=== PATIENT | female | born 1935 | race Caucasian/White ===

== ENCOUNTER 2019-07-23 11:12 | Inpatient (IN) | payer OTHER, MEDICAID ==
[~2019-07-23] VITALS: Ht 154.9 cm; Wt 47.2 kg
[2019-07-23 11:12] VITALS: BP_SYST 120
[2019-07-23] MEDS ORDERED: CALC-939 PO (11:26)
[2019-07-23] MEDS ORDERED: VITD400 PO (11:26)
[2019-07-23] MEDS ORDERED: ALEN10TA7 PO (11:26)
[2019-07-23] MEDS ORDERED: SENN-104 PO (11:26)
[2019-07-23] MEDS ORDERED: ASPI-1153 PO (11:26)
[2019-07-23] MEDS ORDERED: MULT-1200 PO (11:26)
[2019-07-23] MEDS ORDERED: NACL 0.9% 1,000 ML IV ONE (11:28)
[2019-07-23 11:54] LABS: BASOPHILS # (AUTO) 0.1 K/uL (0.0-0.2); BASOPHILS % (AUTO) 0.8 % (0.0-2.0); EOSINOPHILS # (AUTO) 0.2 K/uL (0.0-0.4); EOSINOPHILS % (AUTO) 2.1 % (0.0-4.0); HEMATOCRIT 39.1 % (36-48); HEMOGLOBIN 13.2 g/dL (12.0-16.0); LYMPHOCYTES # (AUTO) 2.5 K/uL (1.0-5.5); LYMPHOCYTES % (AUTO) 30.2 % (20.5-51.5); MEAN CORPUSCULAR HEMOGLOBIN 30 pg (27-31); MEAN CORPUSCULAR HGB CONC 34 % (32-36); MEAN CORPUSCULAR VOLUME 88 fL (79.0-98.0); MONOCYTES # (AUTO) 0.5 K/uL (0.0-1.0); MONOCYTES % (AUTO) 6.1 % (1.7-9.3); NEUTROPHILS % (AUTO) 60.8 % (40.0-70.0); PLATELET COUNT (AUTO) 286 K/uL (130-430); RED BLOOD CELL COUNT(AUTO) 4.45 MIL/uL (4.2-6.2); RED CELL DISTRIBUTION WIDTH 14.3 % (9.0-15.0); WHITE BLOOD COUNT (AUTO) 8.3 K/uL (4.8-10.8)
[2019-07-23 12:03] LABS: ANION GAP 3 (5-15); CALCIUM 9.8 mg/dL (8.4-11.0); CHLORIDE 101 mmol/L (98-107); CREATININE 0.76 mg/dL (0.55-1.30); GLUCOSE 92 mg/dL (70-99); POTASSIUM 4.8 mmol/L (3.5-5.1); SODIUM SERUM 132 mmol/L (136-145); UREA NITROGEN, BLOOD 11 mg/dL (8-21)
[2019-07-23 12:08] LABS: ALANINE AMINOTRANSFERASE 31 U/L (12-78); ALBUMIN 3.6 g/dL (3.4-4.8); ASPARTATE AMINOTRANSFERASE 28 U/L (10-37); LIPASE 86 U/L (73-393); TOTAL BILIRUBIN 0.4 mg/dL (0.0-1.0)
[2019-07-23] MEDS ORDERED: SODIUM PHOSPHATE,MONO-DIBASIC 133 ML ENEMA RC ONE (13:30)
[2019-07-23 13:41] LABS: BILIRUBIN,URINE NEGATIVE (NEGATIVE); CLARITY/URINE CLEAR (CLEAR); COLOR,URINE YELLOW (YELLOW); GLUCOSE,URINE NEGATIVE (NEGATIVE); KETONES,URINE NEGATIVE (NEGATIVE); LEUKOCYTE ESTERASE ,URINE NEGATIVE (NEGATIVE); NITRITE, URINE NEGATIVE (NEGATIVE); PROTEIN URINE NEGATIVE (NEGATIVE); UROBILINOGEN,URINE 0.2 (0.2-1.0)
[2019-07-23 13:52] LABS: BLOOD, URINE TRACE (NEGATIVE)
[2019-07-23 14:10] LABS: BACTERIA,URINE RARE /HPF (None Seen); MUCUS,URINE 1+ /LPF (None Seen); WBC,URINE 0-3 /HPF (0-3)
[2019-07-23 14:33] VITALS: BP_SYST 113
[2019-07-23] MEDS: D5/0.45 NS 1,000 ML IV SCH (15:31)
[2019-07-23] MEDS: MILK OF MAGNESIA 30 ML UDC PO SCH ×3 (15:31→22:17)
[2019-07-23 20:00] VITALS: BP_SYST 116
[2019-07-24 00:17] VITALS: BP_SYST 125
[2019-07-24] MEDS: MILK OF MAGNESIA 30 ML UDC PO SCH ×6 (03:07→22:01)
[2019-07-24] MEDS ORDERED: FLU VACC TS2019(65UP)/MF59C/PF 45 MCG/0.5 ML SYRINGE I.M. PRN (04:15)
[2019-07-24 06:38] LABS: BASOPHILS # (AUTO) 0.1 K/uL (0.0-0.2); BASOPHILS % (AUTO) 0.9 % (0.0-2.0); EOSINOPHILS # (AUTO) 0.2 K/uL (0.0-0.4); EOSINOPHILS % (AUTO) 2.7 % (0.0-4.0); HEMATOCRIT 36.1 % (36-48); HEMOGLOBIN 12.2 g/dL (12.0-16.0); LYMPHOCYTES # (AUTO) 1.9 K/uL (1.0-5.5); LYMPHOCYTES % (AUTO) 29.4 % (20.5-51.5); MEAN CORPUSCULAR HEMOGLOBIN 30 pg (27-31); MEAN CORPUSCULAR HGB CONC 34 % (32-36); MEAN CORPUSCULAR VOLUME 88 fL (79.0-98.0); MONOCYTES # (AUTO) 0.5 K/uL (0.0-1.0); MONOCYTES % (AUTO) 7.4 % (1.7-9.3); NEUTROPHILS # (AUTO) 3.9 K/uL (1.8-7.7); NEUTROPHILS % (AUTO) 59.6 % (40.0-70.0); PLATELET COUNT (AUTO) 247 K/uL (130-430); RED BLOOD CELL COUNT(AUTO) 4.11 MIL/uL (4.2-6.2); RED CELL DISTRIBUTION WIDTH 14.6 % (9.0-15.0); WHITE BLOOD COUNT (AUTO) 6.6 K/uL (4.8-10.8)
[2019-07-24 06:42] LABS: ANION GAP 4 (5-15); CALCIUM 8.6 mg/dL (8.4-11.0); CHLORIDE 105 mmol/L (98-107); GLUCOSE 94 mg/dL (70-99); POTASSIUM 3.8 mmol/L (3.5-5.1); SODIUM SERUM 136 mmol/L (136-145); UREA NITROGEN, BLOOD 8 mg/dL (8-21)
[2019-07-24 08:44] VITALS: BP_SYST 110
[2019-07-24] MEDS: POLYETHYLENE GLYCOL 3350, 17 GM/ POWD.PACK PO SCH (09:01)
[2019-07-24] MEDS: MINERAL OIL 30 ML UDC PO SCH (09:01)
[2019-07-24] MEDS: D5/0.45 NS 1,000 ML IV SCH (09:03)
[2019-07-24 12:26] VITALS: BP_SYST 90
[2019-07-24 17:19] VITALS: BP_SYST 120
[2019-07-24 20:24] VITALS: BP_SYST 132
[2019-07-25 00:32] VITALS: BP_SYST 109
[2019-07-25] MEDS: MILK OF MAGNESIA 30 ML UDC PO SCH ×6 (03:00→22:16)
[2019-07-25] MEDS: D5/0.45 NS 1,000 ML IV SCH ×2 (03:08→22:20)
[2019-07-25 08:27] VITALS: BP_SYST 109
[2019-07-25] MEDS: POLYETHYLENE GLYCOL 3350, 17 GM/ POWD.PACK PO SCH (08:51)
[2019-07-25] MEDS: MINERAL OIL 30 ML UDC PO SCH (08:51)
[2019-07-25 12:17] VITALS: BP_SYST 117
[2019-07-25 16:45] VITALS: BP_SYST 102
[2019-07-25 20:00] VITALS: BP_SYST 112
[2019-07-26] VITALS: BP_SYST 110
[2019-07-26] MEDS: MILK OF MAGNESIA 30 ML UDC PO SCH ×2 (02:51→07:00)
[2019-07-26 08:37] VITALS: BP_SYST 105
[2019-07-26] MEDS: MINERAL OIL 30 ML UDC PO SCH (08:58)
[2019-07-26] MEDS: POLYETHYLENE GLYCOL 3350, 17 GM/ POWD.PACK PO SCH (08:58)
[2019-07-26 18:28] VITALS: BP_SYST 105
== END 2019-07-26 19:02 | disposition home health service (06) | DRG 389 ==
LOC: SED 11:12 → SMU 13:38
PROVIDERS: ADMIT Internal Medicine; ATTEND Internal Medicine
DX: K56.41 Fecal impaction (principal); E87.1 Hypo-osmolality and hyponatremia; I10 Essential (primary) hypertension; F03.90 Unspecified dementia, unspecified severity, without behavioral disturbance, psychotic disturbance, mood disturbance, and anxiety; Z88.8 Allergy status to other drugs, medicaments and biological substances; Z79.899 Other long term (current) drug therapy; Z79.82 Long term (current) use of aspirin
CPT/HCPCS: 36415; 74018; 80048; 80053; 81000-TC; 83690-TC; 85025; 96360; 99285; J7030

== ENCOUNTER 2019-08-18 14:55 | Inpatient (IN) | payer OTHER, MEDICAID ==
[~2019-08-18] VITALS: Ht 154.9 cm; Wt 46.7 kg
[~2019-08-18 14:55] MED LIST: ALEN10TA7 PO; ASPI-1153 PO; CALC-939 PO; MULT-1200 PO; SENN-104 PO; VITD400 PO
[2019-08-18 15:40] VITALS: BP_SYST 116
[2019-08-18 16:01] LABS: BASOPHILS # (AUTO) 0.1 K/uL (0.0-0.2); BASOPHILS % (AUTO) 1.1 % (0.0-2.0); EOSINOPHILS # (AUTO) 0.1 K/uL (0.0-0.4); EOSINOPHILS % (AUTO) 1.3 % (0.0-4.0); HEMATOCRIT 38.3 % (36-48); HEMOGLOBIN 12.6 g/dL (12.0-16.0); LYMPHOCYTES # (AUTO) 1.5 K/uL (1.0-5.5); LYMPHOCYTES % (AUTO) 27.6 % (20.5-51.5); MEAN CORPUSCULAR HEMOGLOBIN 29 pg (27-31); MEAN CORPUSCULAR HGB CONC 33 % (32-36); MEAN CORPUSCULAR VOLUME 89 fL (79.0-98.0); MONOCYTES # (AUTO) 0.5 K/uL (0.0-1.0); MONOCYTES % (AUTO) 8.4 % (1.7-9.3); NEUTROPHILS # (AUTO) 3.4 K/uL (1.8-7.7); NEUTROPHILS % (AUTO) 61.6 % (40.0-70.0); PLATELET COUNT (AUTO) 304 K/uL (130-430); RED BLOOD CELL COUNT(AUTO) 4.32 MIL/uL (4.2-6.2); RED CELL DISTRIBUTION WIDTH 14.7 % (9.0-15.0); WHITE BLOOD COUNT (AUTO) 5.6 K/uL (4.8-10.8)
[2019-08-18 16:22] LABS: ANION GAP 5 (5-15); CALCIUM 9.2 mg/dL (8.4-11.0); CHLORIDE 102 mmol/L (98-107); CREATININE 0.44 mg/dL (0.55-1.30); GLUCOSE 100 mg/dL (70-99); POTASSIUM 4.5 mmol/L (3.5-5.1); SODIUM SERUM 135 mmol/L (136-145); UREA NITROGEN, BLOOD 7 mg/dL (8-21)
[2019-08-18 16:27] LABS: ALANINE AMINOTRANSFERASE 28 U/L (12-78); ALBUMIN 3.3 g/dL (3.4-4.8); ASPARTATE AMINOTRANSFERASE 24 U/L (10-37); TOTAL BILIRUBIN 0.2 mg/dL (0.0-1.0)
[2019-08-18 18:04] LABS: BILIRUBIN,URINE NEGATIVE (NEGATIVE); BLOOD, URINE NEGATIVE (NEGATIVE); CLARITY/URINE CLEAR (CLEAR); COLOR,URINE YELLOW (YELLOW); GLUCOSE,URINE NEGATIVE (NEGATIVE); KETONES,URINE NEGATIVE (NEGATIVE); LEUKOCYTE ESTERASE ,URINE NEGATIVE (NEGATIVE); NITRITE, URINE NEGATIVE (NEGATIVE); PH,URINE 6.5 (5.0-8.0); PROTEIN URINE NEGATIVE (NEGATIVE); UROBILINOGEN,URINE 0.2 (0.2-1.0)
[2019-08-18] MEDS ORDERED: SENN-104 PO (19:37)
[2019-08-18] MEDS ORDERED: CHOL100062 PO (19:37)
[2019-08-18] MEDS ORDERED: [UNRECOGNIZED DRUG - OTHER] PO (19:37)
[2019-08-18] MEDS ORDERED: LORA10TA7 PO (19:37)
[2019-08-18] MEDS ORDERED: CALC-939 PO (19:37)
[2019-08-18] MEDS ORDERED: NAPROXEN PO (19:37)
[2019-08-18] MEDS: D5/0.45 NS 1,000 ML IV SCH (19:58)
[2019-08-18 21:06] VITALS: BP_SYST 117
[2019-08-19 01:50] VITALS: BP_SYST 118
[2019-08-19 05:49] LABS: BASOPHILS % (AUTO) 0.8 % (0.0-2.0); EOSINOPHILS # (AUTO) 0.1 K/uL (0.0-0.4); EOSINOPHILS % (AUTO) 2.1 % (0.0-4.0); HEMATOCRIT 35.7 % (36-48); HEMOGLOBIN 11.9 g/dL (12.0-16.0); LYMPHOCYTES # (AUTO) 1.9 K/uL (1.0-5.5); LYMPHOCYTES % (AUTO) 30.6 % (20.5-51.5); MEAN CORPUSCULAR HEMOGLOBIN 29 pg (27-31); MEAN CORPUSCULAR HGB CONC 33 % (32-36); MEAN CORPUSCULAR VOLUME 88 fL (79.0-98.0); MONOCYTES # (AUTO) 0.5 K/uL (0.0-1.0); MONOCYTES % (AUTO) 8.8 % (1.7-9.3); NEUTROPHILS # (AUTO) 3.5 K/uL (1.8-7.7); NEUTROPHILS % (AUTO) 57.7 % (40.0-70.0); PLATELET COUNT (AUTO) 278 K/uL (130-430); RED BLOOD CELL COUNT(AUTO) 4.06 MIL/uL (4.2-6.2); RED CELL DISTRIBUTION WIDTH 14.7 % (9.0-15.0); WHITE BLOOD COUNT (AUTO) 6.1 K/uL (4.8-10.8)
[2019-08-19 06:07] LABS: CHOLESTEROL 119 mg/dL (<200); HDL CHOLESTEROL 53 mg/dL (>55); LDL CHOLESTEROL 53 mg/dL (<100); TRIGLYCERIDES 77 mg/dL (30-150)
[2019-08-19 06:26] LABS: ANION GAP 7 (5-15); CALCIUM 8.9 mg/dL (8.4-11.0); CHLORIDE 105 mmol/L (98-107); CREATININE 0.43 mg/dL (0.55-1.30); GLUCOSE 93 mg/dL (70-99); POTASSIUM 3.7 mmol/L (3.5-5.1); SODIUM SERUM 139 mmol/L (136-145); THYROID STIMULATING HORMONE 3.12 uIu/mL (0.36-3.74); UREA NITROGEN, BLOOD 7 mg/dL (8-21)
[2019-08-19 08:00] VITALS: BP_SYST 109
[2019-08-19 12:48] VITALS: BP_SYST 121
[2019-08-19 16:15] VITALS: BP_SYST 124
[2019-08-19] MEDS: D5/0.45 NS 1,000 ML IV SCH (17:48)
[2019-08-19] MEDS ORDERED: MORPHINE 2 MG/ML INJ. SYRINGE ONE (23:03)
[2019-08-20 00:10] VITALS: BP_SYST 119
[2019-08-20] MEDS ORDERED: MORPHINE 2 MG/ML INJ. SYRINGE IVP PRN (01:30)
[2019-08-20 06:15] LABS: BASOPHILS % (AUTO) 0.5 % (0.0-2.0); EOSINOPHILS # (AUTO) 0.1 K/uL (0.0-0.4); EOSINOPHILS % (AUTO) 0.7 % (0.0-4.0); HEMATOCRIT 35.7 % (36-48); LYMPHOCYTES # (AUTO) 2.1 K/uL (1.0-5.5); LYMPHOCYTES % (AUTO) 23.3 % (20.5-51.5); MEAN CORPUSCULAR HEMOGLOBIN 30 pg (27-31); MEAN CORPUSCULAR HGB CONC 34 % (32-36); MEAN CORPUSCULAR VOLUME 88 fL (79.0-98.0); MONOCYTES # (AUTO) 0.5 K/uL (0.0-1.0); MONOCYTES % (AUTO) 5.6 % (1.7-9.3); NEUTROPHILS # (AUTO) 6.2 K/uL (1.8-7.7); NEUTROPHILS % (AUTO) 69.9 % (40.0-70.0); PLATELET COUNT (AUTO) 260 K/uL (130-430); RED BLOOD CELL COUNT(AUTO) 4.04 MIL/uL (4.2-6.2); RED CELL DISTRIBUTION WIDTH 14.7 % (9.0-15.0); WHITE BLOOD COUNT (AUTO) 8.8 K/uL (4.8-10.8)
[2019-08-20 06:17] LABS: ANION GAP 5 (5-15); CALCIUM 8.5 mg/dL (8.4-11.0); CHLORIDE 106 mmol/L (98-107); CREATININE 0.52 mg/dL (0.55-1.30); GLUCOSE 102 mg/dL (70-99); SODIUM SERUM 138 mmol/L (136-145); UREA NITROGEN, BLOOD 10 mg/dL (8-21)
[2019-08-20 07:00] VITALS: BP_SYST 113
[2019-08-20 08:00] VITALS: BP_SYST 113
[2019-08-20 08:53] LABS: AMYLASE 44 U/L (0-100); LIPASE 44 U/L (73-393)
[2019-08-20] MEDS: cefTRIAXone 1 GM in D5W 50 ML IV SCH (11:00)
[2019-08-20 12:00] VITALS: BP_SYST 90
[2019-08-20] MEDS: D5/0.45 NS 1,000 ML IV SCH (13:35)
[2019-08-20 16:00] VITALS: BP_SYST 107
[2019-08-20 18:01] LABS: BILIRUBIN,URINE NEGATIVE (NEGATIVE); BLOOD, URINE 1+ (NEGATIVE); COLOR,URINE YELLOW (YELLOW); GLUCOSE,URINE NEGATIVE (NEGATIVE); KETONES,URINE NEGATIVE (NEGATIVE); LEUKOCYTE ESTERASE ,URINE 3+ (NEGATIVE); NITRITE, URINE POSITIVE (NEGATIVE); PROTEIN URINE NEGATIVE (NEGATIVE); UROBILINOGEN,URINE 0.2 (0.2-1.0)
[2019-08-20 18:14] LABS: CLARITY/URINE HAZY (CLEAR)
[2019-08-20 18:16] LABS: BACTERIA,URINE MODERATE /HPF (None Seen); MUCUS,URINE None Seen /LPF (None Seen); RBC,URINE NONE SEEN /HPF (0-3); WBC,URINE 50-80 /HPF (0-3)
[2019-08-20] MEDS ORDERED: ENOXAPARIN SODIUM 60 MG/0.6 ML SYRINGE SUBCUT SCH (21:30)
[2019-08-21 00:34] VITALS: BP_SYST 103
[2019-08-21] MEDS: D5/0.45 NS 1,000 ML IV SCH (07:04)
[2019-08-21 07:50] VITALS: BP_SYST 107
[2019-08-21] MEDS: cefTRIAXone 1 GM in D5W 50 ML IV SCH (08:28)
[2019-08-21] MEDS: LOVENOX SQ SCH ×2 (08:38→20:32)
[2019-08-21 12:35] VITALS: BP_SYST 105
[2019-08-21 16:10] VITALS: BP_SYST 112
[2019-08-21 20:00] VITALS: BP_SYST 99
[2019-08-22 01:49] VITALS: BP_SYST 116
[2019-08-22] MEDS: D5/0.45 NS 1,000 ML IV SCH ×2 (02:34→21:40)
[2019-08-22 07:14] LABS: BASOPHILS % (AUTO) 0.5 % (0.0-2.0); EOSINOPHILS # (AUTO) 0.1 K/uL (0.0-0.4); EOSINOPHILS % (AUTO) 1.8 % (0.0-4.0); HEMATOCRIT 34.1 % (36-48); HEMOGLOBIN 11.6 g/dL (12.0-16.0); LYMPHOCYTES # (AUTO) 1.8 K/uL (1.0-5.5); LYMPHOCYTES % (AUTO) 24.9 % (20.5-51.5); MEAN CORPUSCULAR HEMOGLOBIN 30 pg (27-31); MEAN CORPUSCULAR HGB CONC 34 % (32-36); MEAN CORPUSCULAR VOLUME 88 fL (79.0-98.0); MONOCYTES # (AUTO) 0.5 K/uL (0.0-1.0); MONOCYTES % (AUTO) 6.4 % (1.7-9.3); NEUTROPHILS # (AUTO) 4.8 K/uL (1.8-7.7); NEUTROPHILS % (AUTO) 66.4 % (40.0-70.0); PLATELET COUNT (AUTO) 256 K/uL (130-430); RED BLOOD CELL COUNT(AUTO) 3.89 MIL/uL (4.2-6.2); RED CELL DISTRIBUTION WIDTH 14.6 % (9.0-15.0); WHITE BLOOD COUNT (AUTO) 7.2 K/uL (4.8-10.8)
[2019-08-22 07:39] LABS: ALANINE AMINOTRANSFERASE 19 U/L (12-78); ALBUMIN 2.6 g/dL (3.4-4.8); ANION GAP 5 (5-15); ASPARTATE AMINOTRANSFERASE 15 U/L (10-37); CALCIUM 8.3 mg/dL (8.4-11.0); CHLORIDE 106 mmol/L (98-107); CREATININE 0.35 mg/dL (0.55-1.30); GLUCOSE 96 mg/dL (70-99); POTASSIUM 3.4 mmol/L (3.5-5.1); SODIUM SERUM 136 mmol/L (136-145); TOTAL BILIRUBIN 0.3 mg/dL (0.0-1.0); UREA NITROGEN, BLOOD 6 mg/dL (8-21)
[2019-08-22 08:21] VITALS: BP_SYST 117
[2019-08-22] MEDS: LOVENOX SQ SCH ×2 (08:57→21:40)
[2019-08-22] MEDS: cefTRIAXone 1 GM in D5W 50 ML IV SCH (08:57)
[2019-08-22] MEDS ORDERED: POTASSIUM CHLORIDE 20 MEQ TAB.PRT.SR PO ONE (10:45)
[2019-08-22] MEDS: HYDROcodone/ACETAMIN 5-325 MG TAB (NORCO/ VICODIN) PO PRN (11:13)
[2019-08-22 11:59] VITALS: BP_SYST 120
[2019-08-22 12:00] VITALS: BP_SYST 109
[2019-08-22] MEDS ORDERED: DIPHENHYDRAMINE HCL 25 MG CAPSULE PO ONE (15:30)
[2019-08-22 16:00] VITALS: BP_SYST 118
[2019-08-22 20:00] VITALS: BP_SYST 120
[2019-08-23 00:34] VITALS: BP_SYST 114
[2019-08-23] MEDS: HYDROcodone/ACETAMIN 5-325 MG TAB (NORCO/ VICODIN) PO PRN (00:35)
[2019-08-23 08:24] VITALS: BP_SYST 118
[2019-08-23] MEDS: cefTRIAXone 1 GM in D5W 50 ML IV SCH (08:32)
[2019-08-23] MEDS: LOVENOX SQ SCH ×2 (08:34→21:00)
[2019-08-23 11:18] VITALS: BP_SYST 96
[2019-08-23 16:00] VITALS: BP_SYST 99
[2019-08-23] MEDS: D5/0.45 NS 1,000 ML IV SCH (18:15)
[2019-08-23 19:00] VITALS: BP_SYST 118
[2019-08-24 00:34] VITALS: BP_SYST 97
[2019-08-24 04:00] VITALS: BP_SYST 110
[2019-08-24] MEDS: LOVENOX SQ SCH (09:12)
[2019-08-24] MEDS ORDERED: LEVOFLOXACIN 250 MG TABLET PO SCH (10:00)
[2019-08-24 12:00] VITALS: BP_SYST 99
[2019-08-24] MEDS: HYDROcodone/ACETAMIN 5-325 MG TAB (NORCO/ VICODIN) PO PRN (12:40)
[2019-08-24 16:18] VITALS: BP_SYST 125
[2019-08-24 17:00] VITALS: BP_SYST 125
== END 2019-08-24 17:50 | DRG 603 ==
LOC: SED 14:55 → SMU 18:29 → OBSVTOIN 18:29 → SMU 19:54
PROVIDERS: ADMIT Internal Medicine; ATTEND Internal Medicine
DX: L03.032 Cellulitis of left toe (principal); N39.0 Urinary tract infection, site not specified; E44.1 Mild protein-calorie malnutrition; I73.9 Peripheral vascular disease, unspecified; K21.9 Gastro-esophageal reflux disease without esophagitis; F03.90 Unspecified dementia, unspecified severity, without behavioral disturbance, psychotic disturbance, mood disturbance, and anxiety; L89.899 Pressure ulcer of other site, unspecified stage; G62.9 Polyneuropathy, unspecified; M81.0 Age-related osteoporosis without current pathological fracture; Z88.8 Allergy status to other drugs, medicaments and biological substances; Z79.82 Long term (current) use of aspirin; Z79.899 Other long term (current) drug therapy
CPT/HCPCS: 36415; 76700-TC; 80048; 80053; 80061; 81000-TC; 81003; 82150-TC; 83605; 83690-TC; 84443-TC; 85025; 87040-TC; 87081; 87086; 92610-GN; 93923; 93971; 99285; J0696; J1650; J2270; J7060